=== PATIENT | female | born 1960 | race Caucasian/White ===

== ENCOUNTER 2020-04-18 06:56 | Emergency (ER) | payer OTHER, MEDICAID ==
[~2020-04-18] VITALS: Ht 162.6 cm; Wt 92.4 kg
--- NOTE | 2020-04-18 07:07 | NUR ---
59 Y/O FEMALE PRESENTS TO ED WITH C/O "IN DEC I HAD SOME KIND OF WEIRD VIRUS, GOT OVER IT. January WOKE UP COUGHING UP A LOT OF MUCUS. IT'S BEEN THIS WAY EVERY SINCE. I GET UP EVERY MORING COUGHING UP MUCUS. UP IN MY BRONCHIOLES IT FEELS IT GETS TIGHT, BUT I CAN BREATHE. IT'S LIKE SYMPTOMS OF PNEUMONIA. MY NOSE IS STUFFED CONSTANTLY AND MY SINUSES HURT. LIKE THERE IS A BALLOON IN MY HEAD. I HAVE AN APPT WITH DR. TRINIDAD." PT PLACED ON CONT PULSE OX,NIBP. NO C/O N/V/D, TRAUMA, SYNCOPE, CP.
[2020-04-18 07:28] VITALS: BP 154/82
[2020-04-18 07:40] LABS: BASOPHILS # (AUTO) 0.02 x10^3/uL (0-0.1); BASOPHILS % (AUTO) 0 % (0-1); EOSINOPHILS # (AUTO) 0.08 x10^3/uL (0-0.4); EOSINOPHILS % (AUTO) 1 % (1-7); LYMPHOCYTES # (AUTO) 1.19 x10^3/uL (1-3.4); LYMPHOCYTES % (AUTO) 17 % (22-44); MD NO; MEAN CORPUSCULAR HEMOGLOBIN 31.2 pg (27.0-34.8); MEAN CORPUSCULAR HGB CONC 33.6 g/dL (32.4-35.8); MEAN CORPUSCULAR VOLUME 92.8 fL (80-100); MEAN PLATELET VOLUME 7.3 fL (7.4-10.4); MONOCYTES # (AUTO) 0.37 x10^3/uL (0.2-0.8); MONOCYTES % (AUTO) 5 % (2-9); NEUTROPHILS % (AUTO) 76 % (42-75); PLATELET COUNT 203 x10^3/uL (130-400); RED BLOOD COUNT 4.46 x10^6/uL (3.82-5.3); RED CELL DISTRIBUTION WIDTH 12.1 % (9.6-15.2)
[2020-04-18 07:51] LABS: ALBUMIN 3.5 g/dL (3.4-5.0); ANION GAP 6 mmol/L (5-15); CALCIUM 9.1 mg/dL (8.5-10.1); CHLORIDE 111 mmol/L (98-107); CREATININE 0.89 mg/dL (0.55-1.02)
--- NOTE | 2020-04-18 08:34 | NUR ---
Patient/Caregiver given discharge instructions and they have confirmed that they understand the instructions. Patient ambulatory with steady gait. pt left with all personal belongings.
== END 2020-04-18 08:35 | disposition home or self-care (01) ==
LOC: ED 07:45
DX: J32.9 Chronic sinusitis, unspecified (principal); Z20.828 Contact with and (suspected) exposure to other viral communicable diseases; R07.9 Chest pain, unspecified
CPT/HCPCS: 36415; 80048; 82040; 85025; 99283; U0001